=== PATIENT | male | born 1980 | race Caucasian/White ===

== ENCOUNTER 2019-06-09 10:16 | Emergency (ER) | payer MEDICAID, SELFPAY ==
[~2019-06-09] VITALS: Ht 165.1 cm; Wt 110.5 kg
[2019-06-09 10:17] VITALS: BP 132/87
== END 2019-06-09 11:16 | disposition home or self-care (01) ==
LOC: M ED 10:16
DX: H61.22 Impacted cerumen, left ear (principal); H91.92 Unspecified hearing loss, left ear